=== PATIENT | male | born 1995 | race Caucasian/White ===

== ENCOUNTER 2025-01-11 19:19 | Emergency (ER) | payer MEDICAID ==
[~2025-01-11] VITALS: Ht 170.2 cm; Wt 113.5 kg
[2025-01-11 20:00] VITALS: TEMP 36.8; O2SAT 98
[2025-01-11 23:41] LABS: BASOPHILS % 0.2 % (0.0-2.0); EOSINOPHILS % 0.8 % (0.0-5.0); HEMATOCRIT. 44.2 % (42.0-52.0); HEMOGLOBIN. 15.3 g/dL (14.0-18.0); LYMPHOCYTES % 26.2 % (20.0-50.0); MEAN PLATELET VOLUME 9.8 fl (7.4-10.4); MONOCYTES % 5.6 % (2.0-8.0); NEUTROPHILS % 67.2 % (40.0-76.0); PLATELET 214 x1000/uL (130-400); RED BLOOD CELL COUNT 5.17 mill/uL (4.7-6.1); RED CELL DISTRIBUTION WIDTH 13.3 % (11.6-14.6)
[2025-01-11 23:59] LABS: CREATININE 0.8 mg/dL (0.6-1.3); TROPONIN I HIGH SENSITIVITY < 4 ng/L (3.0-53); UREA NITROGEN BLOOD 7 mg/dL (9-23)
[2025-01-12 02:44] VITALS: BP 144/65; PULSE 82; RESP 16; O2SAT 100
== END 2025-01-12 02:49 | disposition home or self-care (01) ==
LOC: ER 19:19
DX: R06.02 Shortness of breath (principal); R07.89 Other chest pain; R00.2 Palpitations
CPT/HCPCS: 36415; 71045; 80048; 84484; 85025; 85379; 93005; 99285